=== PATIENT | female | born 1960 | race Two or more races ===

== ENCOUNTER 2021-09-02 08:00 | Outpatient (CLI) | payer OTHER | END 2021-09-02 08:30 | disposition home or self-care (01) | LOC: PPH VACUNA 08:00 | PROVIDERS: ATTEND Emergency Medicine Pediatric Emergency Medicine | DX: Z23 Encounter for immunization (principal) ==

== ENCOUNTER 2024-10-22 10:19 | Outpatient (CLI) | payer OTHER | END 2024-10-22 10:23 | disposition home or self-care (01) | LOC: SONOGRAMA 10:19 | PROVIDERS: ATTEND Internal Medicine Cardiovascular Disease | DX: M12.9 Arthropathy, unspecified (principal) ==